=== PATIENT | male | born 1955 | race Caucasian/White ===

== ENCOUNTER 2022-01-16 00:16 | Day surgery (SDC) | payer MEDICARE, SELFPAY ==
[2022-01-04 12:00] VITALS: BMI 33.3
[2022-01-16 08:20] VITALS: BP 132/68; PULSE 75; RESP 19; TEMP 36.4; O2SAT 100
[2022-01-16] MEDS: LACTATED RINGERS 1,000 ML 150 ML IV CONT (08:37)
--- NOTE | 2022-01-16 09:20 | PM.HPGS ---
History of Present Illness History of Present Illness Consent: Risks, benefits, and alternatives have been discussed and questions answered. Patient agrees to proceed with procedure. Chief complaint: neoplasm screening Narrative: Sahil Grimes is a 66 year old male with his last colonoscopy 10 years ago Review of Systems Constitutional: Constitutional: Denies headache(s) and Denies weakness Eyes: Eyes: Denies blurry vision ENT: Reports Normal hearing present, Denies headache(s) and Denies neck pain Cardiovascular: Cardiovascular: Denies chest pain and Denies dyspnea Respiratory: Respiratory: Denies dyspnea Gastrointestinal: Gastrointestinal: Reports no additional gastrointestinal complaints Genitourinary: Genitourinary: Denies dysuria Musculoskeletal: Musculoskeletal: Denies neck pain Integumentary/Breasts: Skin/Breast: Denies dry skin Neurologic: Reports Normal hearing present, Denies headache(s) and Denies weakness Psychiatric: Psychiatric: Denies anxiety Endocrine: Endocrine: Denies change in body appearance Hematologic/Lymphatic: Hematologic/Lymphatic: Denies easy bleeding Allergic/Immunologic: Allergic/Immunologic: Denies urticaria PMFSH Past Medical History Medical History (Updated 01/16/22 @ 09:23 by Cj Lea MD) Colon cancer screening Social History Social History Smoking packs per day: 1 Smoking cigarettes per day: 20.0 Smoking status: Current every day smoker Tobacco type: cigarettes Substance use type: does not use Living arrangements: with family Meds Home Medications and Allergies Home Medications Medication Instructions Recorded Confirmed Type diclofenac sodium 75 mg PO DAILY 01/04/22 01/04/22 History lisinopril-hydrochlorothiazide 1 tablet PO DAILY 01/04/22 01/04/22 History simvastatin 40 mg PO DAILY 01/04/22 01/04/22 History Allergies Allergy/AdvReac Type Severity Reaction Status Date / Time codeine Allergy Swelling Verified 01/16/22 08:15 of Lip/Tongue/Throat Vital Signs Vital Signs - 24 hr 01/16/22 08:20 Temperature 97.6 F Pulse Rate 75 Respiratory Rate 19 Blood Pressure 132/68 Pulse Oximetry 100 Exam Const: General: comfortable and no acute distress HENMT: General nose exam: Normal nares present Eyes: General: appearance normal, both eyes and all related structures Neck: Neck: no JVD Resp: Auscultation: clear to auscultation bilaterally Cardio: Rate: regular rate Rhythm: regular rhythm GI: Inspection: non-distended GI Palp: Yes Soft to palpation Skin: General skin exam: normal color Neuro: General: gait normal Speech: normal speech Extrem: General: normal to inspection Psych: Mental Status: mental status grossly normal Assessment and Plan Assessment and plan (1) Colon cancer screening: Code(s): Z12.11 - Encounter for screening for malignant neoplasm of colon Status: Acute Assessment and Plan: colonoscopy
--- NOTE | 2022-01-16 09:21 | WPDANESEPPF ---
Anes - Initial Pre Proc Eval Procedure: Operation Date: 01/16/22 09:30 Proposed Procedures p Screening Colonoscopy - Cj Lea MD Date/Time: 01/16/22 09:21 Surgeon: Cj Lea MD Pre Op Diagnosis: neoplasm screening Patient Data Age: 66 Gender: M Height: 1.83 m Weight: 99 kg Last Vital Signs Temp 97.6 F 01/16/22 08:20 Pulse 75 01/16/22 08:20 Resp 19 01/16/22 08:20 BP 132/68 01/16/22 08:20 Pulse Ox 100 01/16/22 08:20 Allergies Allergy/AdvReac Type Severity Reaction Status Date / Time codeine Allergy Swelling Verified 01/16/22 08:15 of Lip/Tongue/Throat Home Medications Medication Instructions Recorded Confirmed Type diclofenac sodium 75 mg PO DAILY 01/04/22 01/04/22 History lisinopril-hydrochlorothiazide 1 tablet PO DAILY 01/04/22 01/04/22 History simvastatin 40 mg PO DAILY 01/04/22 01/04/22 History Patient hx anesthesia problems: none Family hx anesthesia problems: none Results Review: All pre-operative results and documents have been reviewed as part of the pre-operative evaluation. [facility] Social History Social History Smoking packs per day: 1 Smoking cigarettes per day: 20.0 Smoking status: Current every day smoker Tobacco type: cigarettes Substance use type: does not use Living arrangements: with family Anes - Eval Final PreProcedure Day of Procedure 01/16/22 09:21 Patient weight: obese Heart: regular rate and rhythm Lungs: clear to auscultation Airway: Mallampati scale Neurological: alert and oriented Last oral intake: >/= 8 hours ASA classification: III Emergent: no Anesthetic plan: proceed Anesthesia type and monitoring: general GIVS and standard monitoring Results Review: All pre-operative results and documents have been reviewed as part of the pre-operative evaluation. Informed Consent: The patient's anesthetic plan and its attendant risks and benefits were discussed with the patient/family/POA. Questions were solicited and answers provided to the satisfaction of the patient/family/POA.
[2022-01-16 09:38] VITALS: BP 138/81; PULSE 71; RESP 24; O2SAT 97
[2022-01-16 09:48] VITALS: BP 119/67; PULSE 73; RESP 21; O2SAT 99
[2022-01-16 09:58] VITALS: BP 115/76; PULSE 70; RESP 18; O2SAT 100
== END 2022-01-16 10:05 | disposition home or self-care (01) ==
PROVIDERS: PCP Student in an Organized Health Care Education/Training Program; Visit Provider Internal Medicine Gastroenterology
PROC: 0DJD8ZZ Inspection of Lower Intestinal Tract, Via Natural or Artificial Opening Endoscopic (ICD-10-PCS; CPT 45378; principal; 2022-01-16 09:30)
DX: Z12.11 Encounter for screening for malignant neoplasm of colon (principal); K57.30 Diverticulosis of large intestine without perforation or abscess without bleeding; K64.8 Other hemorrhoids; F17.210 Nicotine dependence, cigarettes, uncomplicated; E66.9 Obesity, unspecified; Z68.29 Body mass index [BMI] 29.0-29.9, adult
CPT/HCPCS: G0121; J2704; J7120

== ENCOUNTER 2024-07-13 08:30 | Outpatient (CLI) | payer MEDICARE, MEDICAID, SELFPAY ==
--- NOTE | ~2024-07-13 | XR_ITS ---
EXAMINATION: XR hand LT min 3V DATE: 07/13/2024 08:44 INDICATION: Bump of the left proximal thumb. TECHNIQUE: 3 views of left hand were obtained. COMPARISON: None. FINDINGS: Alignment is normal. No fracture. There is mild osteoarthritis of triscaphe joint, severe o steoarthritis of first carpometacarpal joint, moderate osteoarthritis of first-third metacarpophalang eal joints, first interphalangeal joint, second, fourth, and fifth proximal interphalangeal joints, a nd second-fifth distal interphalangeal joints. There is mild osteoarthritis of the other metacarpopha langeal joints and interphalangeal joints. IMPRESSION: 1. Polyarticular osteoarthritis. Reviewed, dictated and finalized at location [] NESS CONTINUITY PLANNING DIRECTOR
--- NOTE | ~2024-07-13 | XR_ITS ---
EXAMINATION: XR hand RT min 3V DATE: 07/13/2024 08:44 INDICATION: Right thumb bone spur status post removal. TECHNIQUE: 3 views of right hand were obtained. COMPARISON: None. FINDINGS: Alignment is normal. No fracture. There are likely changes of resection of trapezium. There is mild osteoarthritis of scaphoid-trapezoid joint and some of the metacarpophalangeal joints and in terphalangeal joints. There is moderate osteoarthritis of second and third metacarpophalangeal joints , first interphalangeal joint, second and third proximal interphalangeal joints, and second and third distal interphalangeal joints. There is a 5 mm loose body in the radiocarpal compartment dorsally. IMPRESSION: 1. Polyarticular osteoarthritis. Reviewed, dictated and finalized at location [] CIATE PROFESSOR OF VIOLIN
== END 2024-07-13 08:31 | disposition home or self-care (01) ==
LOC: ANHIMG 08:31
PROVIDERS: PCP Student in an Organized Health Care Education/Training Program; Visit Provider Plastic Surgery
DX: M18.12 Unilateral primary osteoarthritis of first carpometacarpal joint, left hand (principal); M19.041 Primary osteoarthritis, right hand
CPT/HCPCS: 73130

== ENCOUNTER 2024-08-03 12:30 | Outpatient (CLI) | payer MEDICARE, MEDICAID, SELFPAY ==
--- NOTE | ~2024-08-03 | CT_ITS ---
EXAMINATION: CT lung screening DATE: 08/03/2024 12:46 INDICATION: nicotine dependence TECHNIQUE: Computed tomography (CT) of the chest was performed without intravenous contrast. Addition al 3D reconstructions utilizing coronal maximum intensity projection (MIP) were performed. Automated exposure control and iterative reconstruction technique were employed. The dose-length product was 29 6.83 mGy-cm. COMPARISON: None FINDINGS: Calcified right apical nodule consistent with old granulomatous disease. 7 mm noncalcified nodule at the lingula on series 4, image 58. No other suspicious pulmonary nodules, pneumonia, pulmonary edema or pleural effusion. Minimal calcified plaques along the apices of both the left and right leaf of th e diaphragm which suggests sequela of prior asbestos exposure. Heart size normal. Atherosclerotic cor onary artery calcium. Aortic valve calcific location. No pericardial effusion. Thoracic aorta is norm al in caliber. 3.7 x 3.4 cm mass containing a few coarse calcifications located in the superior media stinum and which exerts mass effect upon the left side of the esophagus and left posterior margin of the trachea. The mass abuts and may arise from the posterior lower pole of the left thyroid. No other pathologically enlarged thoracic lymphadenopathy. 2.1 cm less than simple fluid attenuation right ad renal adenoma. IMPRESSION: 1. Lung-RADS category 3S: Probably benign with additional potentially significant lung cancer finding s. Further evaluation is recommended with noncontrast low-dose chest CT in 6 months. 2. Nonspecific 3.7 x 3.4 cm superior mediastinal mass with coarse calcifications which abuts the infe rior margin of the left thyroid lobe potentially an intrathoracic goiter. Given the location the mass is likely unable to be visualized with standard thyroid ultrasound and would not be amenable to ultr asound-guided biopsy. Correlate with any prior outside imaging if available. Reviewed, dictated and finalized at location A. RY WORKER IMPRESSION: 1. Lung-RADS category 3S: Probably benign with additional potentially significa nt lung cancer findings. Further evaluation is recommended with noncontrast low -dose chest CT in 6 months. 2. Nonspecific 3.7 x 3.4 cm superior mediastinal mass with coarse calcification s which abuts the inferior margin of the left thyroid lobe potentially an intra thoracic goiter. Given the location the mass is likely unable to be visualized with standard thyroid ultrasound and would not be amenable to ultrasound-guided biopsy. Correlate with any prior outside imaging if available.
== END 2024-08-03 12:31 | disposition home or self-care (01) ==
PROVIDERS: PCP Student in an Organized Health Care Education/Training Program; Visit Provider Student in an Organized Health Care Education/Training Program
DX: Z12.2 Encounter for screening for malignant neoplasm of respiratory organs (principal); F17.210 Nicotine dependence, cigarettes, uncomplicated; R91.8 Other nonspecific abnormal finding of lung field
CPT/HCPCS: 71271

== ENCOUNTER 2024-10-29 05:51 | Day surgery (SDC) | payer MEDICARE, MEDICAID, SELFPAY ==
[2024-10-07 13:28] VITALS: BMI 32.5
--- NOTE | 2024-10-28 14:59 | WPDANESEPPF ---
Anes - Initial Pre Proc Eval Procedure: Operation Date: 10/29/24 07:30 Proposed Procedures p Left Thumb Basal Joint Arthroplasty with Mini Tightrope - Daylin Nickerson MD Date/Time: 10/28/24 14:59 Surgeon: Daylin Nickerson MD Pre Op Diagnosis: Osteoarthritis First Metacarpal Joint Left Hand Patient Data Age: 68 Gender: M Height: 1.83 m Weight: 109 kg Allergies Allergy/AdvReac Type Severity Reaction Status Date / Time codeine Allergy Swelling Verified 10/07/24 13:27 of Lip/Tongue/Throat Home Medications ?Medication ?Instructions ?Recorded ?Confirmed ?Type lisinopril 20 1 tablet PO DAILY 01/04/22 10/07/24 History mg-hydrochlorothiazide 12.5 mg tablet simvastatin 40 mg tablet 40 mg PO DAILY 01/04/22 10/07/24 History aspirin 81 mg tablet,delayed 81 mg PO DAILY 10/07/24 10/07/24 History release (Adult Low Dose Aspirin) meloxicam 15 mg tablet 15 mg PO DAILY 10/07/24 10/07/24 History tamsulosin 0.4 mg capsule 0.4 mg PO HS 10/07/24 10/07/24 History Patient hx anesthesia problems: none Family hx anesthesia problems: none Results Review: All pre-operative results and documents have been reviewed as part of the pre-operative evaluation. [facility] Past Medical History Medical History (Updated 10/28/24 @ 15:00 by Yao Mckeon DO) Hyperlipidemia Hypertension Arthritis Colon cancer screening Surgical History Surgical History History of right knee joint replacement 2016 Family History Family History Mother Hypertension Father Hypertension Sibling Hypertension Social History Social History Smoking packs per day: 1 Smoking cigarettes per day: 20.0 Smoking status: Former smoker Tobacco type: cigarettes Second hand tobacco smoke exposure: Yes Alcohol intake: former Substance use type: does not use Living arrangements: with family Spiritual care concerns: No Anes - Eval Final PreProcedure Day of Procedure 10/28/24 14:59 Patient weight: obese Heart: regular rate and rhythm Lungs: clear to auscultation Airway: Mallampati scale class II Neurological: alert and oriented Last oral intake: >/= 8 hours ASA classification: III Emergent: no Anesthetic plan: proceed Anesthesia type and monitoring: general LMA and standard monitoring Results Review: All pre-operative results and documents have been reviewed as part of the pre-operative evaluation. Informed Consent: The patient's anesthetic plan and its attendant risks and benefits were discussed with the patient/family/POA. Questions were solicited and answers provided to the satisfaction of the patient/family/POA.
[2024-10-29] VITALS (11 sets, daily range): BP systolic 114–175; BP diastolic 66–94; PULSE 56–88; RESP 12–23; TEMP 36.1–37.1; O2SAT 100
[2024-10-29] MEDS: LACTATED RINGERS 1,000 ML 30 ML IV CONT (06:20)
--- NOTE | 2024-10-29 06:44 | WPDHPUPDATE1 ---
History and Physical Update Update Date/Time: 10/29/24 06:44 Patient seen and examined in pre-operative holding area. No interval change in medical history or symptoms. Patient recalls previous discussion of benefits and alternatives to procedure. Continues to desire to proceed with left basal joint artrhoplasty with mini-tightrope. Reviewed procedure, post-op expectations and risks including but not limited to bleeding, infection, injury to tendon/nerve/vessel, decreased hand function, failure of repair, hardware complications, stiffness, RSD, no change or worsening of symptoms. I discussed the possible use of assistants and their participation in the case. Patient stated understanding and signed the consent form wishing to proceed.
--- NOTE | 2024-10-29 06:44 | W.PM.PROC2 ---
Procedure Note - Detailed Date of Procedure 10/29/24 Pre-op Diagnosis Osteoarthritis First Metacarpal Joint Left Hand Post-op Diagnosis Same Procedure Performed left basal joint arthroplasty Surgeon Daylin Nickerson MD Biodiesel Division Manager keith haq pa-c Anesthesia General Description of Procedure INFORMED CONSENT: The patient was seen and examined and marked in the pre-op area.? The patient signed the consent form. PROCEDURE IN DETAIL:The patient taken back to OR on the stretcher in supine position. Time out performed with anesthesia, surgeon and staff agreeing on patient's name site and surgery to be performed SCDs were placed on the lower extremities and inflated. A tourniquet was placed on {left} upper extremity and antibiotics given IV After anesthesia administered sedation I injected {10}cc 1%lido with epi and 0.5% marcaine plain at the operative site The?{left upper extremity}?was prepped and draped in sterile fashion the??{left upper extremity} was? exsanguinated with Esmarch bandage and tourniquet inflated to 250mmHg I proceeded with making a longitudinal incision between the 1st and 3rd extensor compartments over the left trapezium through skin and dermis with a 15 blade scalpel. Littler scissors were used to spread down to the joint capsule. A branch of the dorsal radial sensory nerve was identified and protected throughout the procedure. I made longitudinal capsulotomy and proceeded with elevating capsular flaps. Mini C-arm was draped and brought into the field position of the trapezium was verified. There was a significant of calcification of the capsule with the trapezium and osteophytes extending radially and ulnarly around the metacarpal. The trapezium also fully encased the FCR as well as extended volarly abutting the FPL tendon. Resection of this extremely arthritic trapezium required a combination of sharp dissection, the Mcglamry elevator, osteotome and side-cutting bur. After trapezial resection mini C-arm was used to verify resection. Areas of calcification of the capsule were still noted but unable to be safely excised and did not seem to be resulting in any impingement upon the thumb motion. I irrigated with normal saline. I proceeded with making a longitudinal incision over the 2nd metacarpal base through skin and dermis with a 15 blade scalpel. Littler scissors were used to spread down to the 2nd metacarpal. I made a longitudinal incision in the periosteum and used a [place] elevator to reflect the interosseous musculature on the ulnar aspect of 2nd metacarpal base. Next I proceeded with placing an Arthrex variable gauge K-wire in a radial to ulnar direction from the 1st metacarpal through the 2nd metacarpal base. K-wire placement was verified in multiple views of fluoroscopy. The Arthrex mini tightrope was then passed in a radial ulnar direction. The button was noted to be resting on the 1st metacarpal on fluoroscopy. Second button was tightened over the 2nd metacarpal base initially and fluoroscopic evaluation noted no impingement on range of motion and no subsidence on axial load. The button was secured to the 2nd metacarpal. I irrigated with normal saline. Capsule and periosteum was closed over the button in the trapezial resection site with 3-0 Vicryl suture. 3-0 chromic was used for dermis and 4-0 chromic for skin. A dressing of xeroform, 4x4, aryan, and a thumb spica splint was applied for patient safety, security, and comfort and secured with an madhuri bandage after the tourniquet was let down noting the hand was warm and well perfused. The patient was then awaken from anesthesia and transferred to the recovery room in stable condition.? Complications - none EBL- 2cc Disposition - home in stable conditions Keith Haq PA-C was essential for positioning, retraction, fluoro, instrumentation, closure and dressing placement [facility] Billing Surgery - Charge Forward: Surgery Billing ([id number], for keith)
[2024-10-29] MEDS: ceFAZolin SODIUM 2 GM/20 ML SW SYRINGE IV PUSH (07:25)
[2024-10-29] MEDS: LIDO 1%/EPINEPHRINE 1:100,000 10 ML VIAL 4 ML INFILTRATE (07:30)
[2024-10-29] MEDS: BUPivacaine HCL 0.5% 10 ML AMP 4 ML INFILTRATE (07:30)
[2024-10-29] MEDS: fentaNYL CITRATE INJ (*CRX) 100 MCG/2 ML VIAL 25 MCG IV PUSH ×4 (09:33→10:02)
--- NOTE | 2024-10-29 10:43 | WPDANESPN ---
Anes - Prog Note Post-Op Date/Time: 10/29/24 10:43 Cardiovascular status: normal Respiratory status: normal Airway patency: baseline Mental status: baseline Post-Op hydration status: normal Vital Signs: Last Vital Signs Temp 36.2 C L 10/29/24 09:45 Pulse 70 10/29/24 10:38 Resp 12 10/29/24 10:38 BP 114/94 H 10/29/24 10:38 Pulse Ox 100 10/29/24 10:38 O2 Del Method Room Air 10/29/24 10:38 O2 Flow Rate 8 10/29/24 09:25 Pain Score (VAS): 0 I/O: Intake & Output 10/28/24 10/29/24 10/29/24 23:59 07:59 15:59 Intake Total 700 Balance 700 Post-procedural complaints: none Patient Feedback: Patient satisfied with anesthetic care. Other Findings: Patient vital signs back to baseline. Patient denies nausea and vomiting. Patient's pain under control. Patient OK for discharge.
[2024-10-29] MEDS: oxyCODONE HCL (*CRX) 5 MG TAB IR PO (10:46)
--- NOTE | 2024-10-29 11:05 | SUR.PHASEII ---
1046 Pt has allergy to codeine (swelling of lips and tongue), Pt states pain is a 6/10 and would like oxycodone. Reviewed allergies and reaction with Dr. Mckeon who states okay to proceed with giving pt 5mg oxycodone. Pt agrees.
== END 2024-10-29 11:01 | disposition home or self-care (01) ==
PROVIDERS: PCP Student in an Organized Health Care Education/Training Program; Visit Provider Plastic Surgery
PROC: (CPT 25447; principal; 2024-10-29 07:30)
DX: M18.12 Unilateral primary osteoarthritis of first carpometacarpal joint, left hand (principal)
CPT/HCPCS: 25447; 99199

== ENCOUNTER 2024-10-29 09:48 | Outpatient (NON) | payer MEDICARE, MEDICAID, SELFPAY | END 2024-10-29 09:49 | disposition home or self-care (01) | PROVIDERS: PCP Student in an Organized Health Care Education/Training Program; Visit Provider Plastic Surgery | DX: M19.032 Primary osteoarthritis, left wrist (principal) | CPT/HCPCS: 88304; 88311 ==

== ENCOUNTER 2025-01-19 10:24 | Outpatient (CLI) | payer MEDICARE, MEDICAID, SELFPAY ==
--- NOTE | ~2025-01-19 | XR_ITS ---
XR hand LT min 3V Ordering provider: Sonam Hall PA-C History: . 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 . Comparison: July 13, 2024 FINDINGS: BONES: No acute fracture or dislocation. Status post left trapezium bone removal with postoperative c hanges. JOINT SPACES: Osteoarthritic changes seen in the joint between the first and second metacarpal bones. Osteoarthritic changes of the metacarpophalangeal and interphalangeal joints. Cystic changes seen in multiple subchondral areas SOFT TISSUES: Unremarkable. IMPRESSION: No acute osseous abnormality left hand. Status post trapezial bone excision. Polyarticular osteoarthritic changes. Reviewed, dictated and finalized at location A.
--- OUTSIDE RECORDS SUMMARY | 2025-01-19 10:40 | XMS_ITS | CONTINUITY OF CARE DOCUMENT ---
Author Name [email or web address] Address Unknown Organization [facility] Address [id number] [place] [address] [address] [place] [address] Phone [phone] Care Team Providers Care Head Of Operation And Logistics Name Role Phone Irene Mathew MD Unavailable [phone] JOSE DAVID BARDALES MD Unavailable HISTORY OF MEDICATION USE Medication Status Instructions Dates Provider Indications Com ments ZOCOR 40 MG ORAL TABLET active 1 tab by mouth daily Philip Kraft INSURANCE PROVIDERS Payer name Policy type / Coverage type Juanis red green party ID [place] MEDICAID (2) Medicaid [id number]
--- OUTSIDE RECORDS SUMMARY | 2025-01-19 10:40 | XMS_ITS | Referral Summary ---
Author Organization [facility] Address [address] [place] [id number] Care Team Providers Care Software Quality Test Engineer Name Role Phone Rentangcatiekatina Dilip Paul Primary Care Provide r Philip Montague MD Unavailable [phone] Allergies Active Allergy Reactions Criticality Noted Date Comments Codeine Anaphylaxis,Swelling High 02/27/2020 Swelling of throat Other reaction(s): Throat swelling Swelling of throat Swelling of throat Swelling of throat Other reaction(s): Throat swelling Swelling of throat Medications lisinopril-hydr oCHLOROthiazide (ZESTORETIC) 20-12.5 mg per tablet Take 1 tablet by mouth daily 05/29/2022 Active simvastatin (ZOCOR) 40 mg tablet Take 1 tablet (40 mg total) by mouth nightly 05/16/2022 Active ascorbic acid (VITAMIN C) 500 mg tablet,chewable Indications:Vit cerda deficiency prevention Take 1 tablet/chew tab (500 mg total) by mouth daily 30 tablet/chew tab 11/20/2022 Active celecoxib (CeleBREX) 200 mg capsuleIndicati ons:Pain Take 1 capsule (200 mg total) by mouth 2 (two) times a day 84 capsule 11/20/2022 Active tamsulosin (FLOMAX) 0.4 mg extended release capsule Take 1 capsule (0.4 mg total) by mouth nightly Active meloxicam (MOBIC) 15 mg tablet 06/22/2024 Active cholecalciferol 25 mcg (1,000 unit) tablet Take 1 tablet (1,000 Units total) by mouth daily Active aspirin 81 mg enteric coated tablet Take 1 tablet (81 mg total) by mouth daily Active Active Problems Problem Noted Date Diagnosed Date Thyroid goiter 09/23/2024 Mediastinal mass 09/23/2024 Primary osteoarthritis of left knee 10/29/2022 Overview (10/29/2022): Added automatically from request for surgery [id number] CAD in [place] artery 01/24/2022 Overview (06/06/2022): Remote heart attack around 1999 Dyslipidemia 01/24/2022 Primary hypertension 01/24/2022 Tobacco use disorder 01/24/2022 Primary osteoarthritis of left hip 12/22/2021 Osteoarthritis of carpometacarpal (CMC) joint of left thumb 07/27/2020 Osteoarthritis of carpometac arpal (CMC) joint of right thumb 07/27/2020 Localized, primary osteoarthritis of ankle or fo ot 01/06/2015 Immunizations Immunization Administration Dates Next Due Influenza, Quadrivalent, Split, Intramuscular ,06/24/2019 Tdap 11/08/2020 ZOSTER Recombinant 11/08/2020 Social History Tobacco Use Types Packs/Day Years Used Date Smoking Tobacco: Former Cigarettes 0.5 0.7 1 971 - 06/02/2022 Smokeless Tobacco: Never Tobacco Cessation:Counseling Given: Not Answered AUDIT-C Answer Date Recorded Frequency of Alcohol Consumption Not on file 10/08/2024 Q2: How many drinks containi ng alcohol do you have on a typical day when you are drinking? Patient does not drink Frequency of Binge Drinking Not on file 01/2025 Hunger Vital Sign Answer Date Recorded Within the past 12 months, y ou worried that your food would run out before you got the money to buy more. Never true 10/08/19 25 Within the past 12 months, t he food you bought just didn't last and you didn't have money to get more. Never true 10/08/2024 Personal Safety Answer Date Recorded Have you ever been in or are you currently in a harmful physical or emotional relationship or is someone making you feel afraid or unsafe? Denies 10/08/2024 Sex and Gender Information Value Date Recorded Sex Assigned at Not on file Legal Sex Male 7:16 PM TWISTING FRAME OPERATOR Gender Identity Not on file Sexual Orientation Not on file Last Filed Vital Signs Vital Sign Reading Time Taken Comments Blood Pressure 117/71 10/08/2024 9:50 AM TWISTING FRAME OPERATOR Pulse 63 10/08/2024 9:50 AM TWISTING FRAME OPERATOR Temperature 36.7 C (98.1 F) 10/08/2024 9:04 AM TWISTING FRAME OPERATOR Respiratory Rate 17 10/08/2024 9:50 AM TWISTING FRAME OPERATOR Oxygen Saturation 98% 10/08/2024 9:50 AM TWISTING FRAME OPERATOR Inhaled Oxygen Concentration - - Weight 108.9 kg (240 lb) 10/08/2024 7:48 AM TWISTING FRAME OPERATOR Height 182.9 cm (6') 10/08/2024 7:48 AM TWISTING FRAME OPERATOR Body Mass Index 32.55 10/08/2024 7:48 AM TWISTING FRAME OPERATOR Plan of Treatment Not on file Medical Devices Implanted Type Area Record Systems Analyst Device Identifier Shelf Expiration Date Model / Serial / Lot [employer] [place] 60mm 36mm Hip Neutral Liner Acetabular Altrx Sterile Latex Free [id number] - [id number] Implanted:Qty: 1 on 11/19/2022 by Philip Montague MD at [facility] Left: Hip [employer] 08/01/2027 [id number] / / [id number] [employer] [place] 60mm Sector Hip Shell Acetabular Gription Sterile Latex Free [id number] - [id number] Implanted:Qty: 1 on 11/19/2022 by Philip Montague MD at [facility] Left: Hip [employer] 08/01/2032 [id number] / / [id number] [employer] [place] 6.5mm 35mm Acetabular Cancellous Screw Bone Sterile 1217-35-500 - [id number] Implanted:Qty: 1 on 11/19/2022 by Philip Montague MD at [facility] Left: Hip [employer] 05/02/2032 1217-35-500 / / [id number] [employer] [place] 6.5mm 25mm Acetabular Cancellous Screw Bone Sterile 1217--500 - [id number] Implanted:Qty: 1 on 11/19/2022 by Philip Montague MD at [facility] Left: Hip [employer] 06/01/2032 1217-25-500 / / [id number] [employer] Act[place] 115mm Collar Hip 10 08/15 High Offset Taper Stem Femoral [id number] - [id number] Implanted:Qty: 1 on 11/19/2022 by Philip Montague MD at [facility] Left: Hip [employer] 06/01/2032 [id number] / / [id number] [employer] Articul/Jhonathan 36mm Cementless Hip +5mm / Taper Head Femoral Latex Free [id number] - [id number] Implanted:Qty: 1 on 11/19/2022 by Philip Montague MD at [facility] Left: Hip [employer] 07/02/2027 [id number] / / [id number] Insurance [facility] MEDIC[place] [address] [place] [address] [facility] MEDICARE ADVANTAGE MEDICARE ADVANTAGE MEDICARE ADVANTAGE Advance Directives For more information, please contact: [phone] * Full Code (Latest Code Status on File) Date Activated Date Inactivated Comments 11/19/2022 1:40 PM 11/20/2022 6:09 PM Care Teams Software Quality Test Engineer Relationship Specialty Start Date End Date Dilip Mckeon DO [address] [place], [place] [id number] PCP - General Family Medicine 04/26/22 Philip Montague MD [address] [facility] [address] [place] [id number] Surgeon Orthopedic Surgery 11/20/22
--- OUTSIDE RECORDS SUMMARY | 2025-01-19 10:40 | XMS_ITS | Clinical Summary ---
Author Organization [facility] Address [address] [place] [address] Care Team Providers Care Rotary Peel Oven Tender Name Role Phone Michel Cabrales MD Unavailable [phone] Dilip Mckeon DO Primary Care Provider + Allergies Active Allergy Reactions Criticality Noted Date Comments Codeine Throat swelling,Anaphylaxis High 02/27/2020 Swelling of throat Swelling of throat Other reaction(s): Throat swelling Swelling of throat Medications aspirin 81 MG chewable tablet Chew 1 tablet (81 mg total) by mouth daily. Active tamsulosin (FLOMAX) 0.4 MG Cap Take 1 capsule (0.4 mg total) by mouth nightly at bedtime. 4 Active vitamin D3 (CHOLECALCIFEROL) 25 mcg tablet Take 1 tablet (25 mcg total) by mouth daily. Active meloxicam (MOBIC) 15 MG tabletIndications: Chronic left shoulder pain Take 1 tablet (15 mg total) by mouth daily. 90 tablet 3 4 Active simvastatin (ZOCOR) 40 MG tabletIndications: Hyperlipidemia, unspecified hyperlipidemia type Take 1 tablet (40 mg total) by mouth nightly at bedtime. 90 tablet 3 4 Active lisinopril-hydroCH LOROthiazide (ZESTORETIC) 20-25 MG tabletIndications: Primary hypertension Take 1 tablet by mouth daily. 90 tablet 1 5 Active lisinopril-hydroCH LOROthiazide (ZESTORETIC) 20-12.5 MG tabletIndications: Primary hypertension Take 1 tablet by mouth daily. 90 tablet 3 4 12/29/19 25 Discontin ued(Dose adjustmen t) dexamethasone (DECADRON) 1 MG tabletIndications: Adrenal adenoma, unspecified laterality Take 1 tab at 11 PM the night before your test. Obtain your blood test at 8 AM the next morning. 1 tablet 4 12/29/19 25 Discontin ued(Thera py completed ) Active Problems Problem Noted Date Diagnosed Date Low serum thyroid stimulating hormone (TSH) 08/02 Thyroid mass 08/11/2024 Adrenal adenoma, unspecified laterality 08/11/20 24 Elevated hemoglobin A1c 12/26/2023 Atherosclerosis of abdominal aorta 02/21/2023 Overview (02/21/2023): Noted on ultrasound aorta from 02/05/23. CAD in [place] artery 01/24/2022 Overview (01/24/2022): Remote heart attack around 1999 Primary hypertension 01/24/2022 Dyslipidemia 01/24/2022 Tobacco use disorder 01/24/2022 Primary osteoarthritis of left hip 12/22/2021 Aftercare following surgery 09/14/2020 Osteoarthritis of carpometac arpal (CMC) joint of right thumb, unspecified osteoarthritis type 07/27/2020 Osteoarthritis of carpometac arpal (CMC) joint of left thumb, unspecified osteoarthritis type 07/27/2020 Localized, primary osteoarthritis of ankle or fo ot 01/06/2015 Encounters Date Type Department Care Team Description 12/28/2024 9:40 AM CDT Office Visit [facility] Family & Internal Medicine [address] [phone] Dilip Mckeon, DO Hypertension Follow Up 12/28/2024 8:40 AM CDT Office Visit [facility] Family & Internal Medicine [address] [phone] Dilip Mckeon, DO Medicare Wellness 12/28/2024 Travel 12/24/2024 Patient Outreach [facility] Internal Medicine [address] [phone] Dilip Mckeon, DO Pre-visit Gap Closure 10/29/2024 Scan Solmentum INFO SRVCS Scanned, [facility] Image (SCAN); Procedure (SCAN); Pathology (SCAN) from Last 3 Months Immunizations Immunization Administration Dates Next Due Arexvy Respiratory Syncytial Virus (RSV, adjuvanted) 0.5 mL, PF 07/02/2023 Fluzone 6 Months+ (5.0 mL Multi Dose Vial) 06/24 Fluzone High Dose - >Age 65 (Prefilled Syringe) 06/26/2023,06/25/2022 Influenza (Generic) 05/29/2024 Influenza Adult (Generic) 06/26/2023,07/21/2020, 06/24/2019 MODERNA COVID-19 (12+) MRNA, LNP-S, PF, 100 MCG/ 0.5 ML DOSE 07/31/2021,12/16/2020,11/18/2020 PFIZER COVID-19 (TANG CAP), MRNA, LNP-S, PF, 30 MCG/0.3 ML SAUNDRA-SUCROSE, IM 01/12/2022 PFIZER COVID-19 BIVALENT (12 +) mRNA, LNP-S, PF, 30 MCG/0.3 ML DOSE 05/14/2022 Pneumococcal (Prevnar 20) 06/25/2022 Shingrix 10/26/2022,11/08/2020 Tdap (Generic) 11/08/2020 Family History Medical History Relation Comments Asthma Brother 1 Asthma Brother 2 Hypertension Father No Known Problems Maternal Grandfather No Known Problems Maternal Grandmother Hypertension Mother No Known Problems Paternal Grandfather No Known Problems Paternal Grandmother Relation Status Comments Brother 1 Alive Brother 2 Alive Father Maternal Grandfather Maternal Grandmother Mother Paternal Grandfather Paternal Grandmother Social History Tobacco Use Types Packs/Day Years Used Date Smoking Tobacco: Former Cigarettes 0.5 49 1 - 06/2022 Passive Smoke Exposure: Never Smokeless Tobacco: Never Tobacco Cessation:Counseling Given: Yes Alcohol Use Standard Drinks/Week Comments Not Currently 0 (1 standard drink = 0.6 oz pur e alcohol) AUDIT-C Answer Date Recorded Q1: How often do you have a drink containing alcohol? Never 12/28/2024 Q2: How many drinks containi ng alcohol do you have on a typical day when you are drinking? Patient does not drink Q3: How often do you have si x or more drinks on one occasion? Never 12/28/2024 PHQ-2 Answer Date Recorded Patient Health Questionnaire-2 Score 0 12/28/2024 Sex and Gender Information Value Date Recorded Sex Assigned at Male 08/11/2024 10:42 AM POCKET ASSEMBLER Legal Sex Male 6:47 PM CDT Gender Identity Male 08/11/2024 10:42 AM POCKET ASSEMBLER Sexual Orientation Straight 12/28/2024 9: 11 AM CDT Last Filed Vital Signs Vital Sign Reading Time Taken Comments Blood Pressure 138/88 12/28/2024 9:55 AM CDT Pulse 68 12/28/2024 9:55 AM CDT Temperature 36.9 C (98.4 F) 12/28/2024 9:55 AM CDT Respiratory Rate 18 12/28/2024 9:55 AM CDT Oxygen Saturation 98% 12/28/2024 9:55 AM CDT Inhaled Oxygen Concentration - - Weight 102.6 kg (226 lb 1.6 oz) 12/28/2024 9:55 AM CDT Height 182.9 cm (6') 12/28/2024 9:55 AM CDT Body Mass Index 30.66 12/28/2024 9:55 AM CDT Plan of Treatment Upcoming Encounters Date Type Department Care Team (Late st Contact Info) Description 06/29/2025 8:40 AM CDT Office Visit [facility] Family & Internal Medicine - [address] [phone] Dilip Mckeon, [address] [place] [phone] Health Maintenance Due Date Last Done Comments Lung Cancer Screening 08/08/2022 08/08/2021, 020 Colorectal Cancer Screening Colonoscopy (10 Years) 12/15/2025 12/16/2015 Annual Medicare Wellness Visit 12/29/2025 12/28/2024 DTaP, Tdap and Td Vaccines (2 - Td or Tdap) 11/08/2030 11/08/2020 AAA SCREENING 06/29/2042 Hepatitis C Completed 01/04/2022 Pneumococcal Vaccine: 50+ Years Completed 06/25/2022 Zoster Vaccines Completed 10/26/2022, 11/08/2020 RSV Immunization or 60+ Years Completed 07/02/2023 COVID-19 Vaccine Completed 12/21/2024, , 06/14/2023, Additional history exists PHQ-2 (Physician [place]) Completed 12/28/2024 Meningococcal B Vaccine Aged Out No l onger eligible based on patient's age to complete this topic Meningococcal Vaccine Aged Out No shey baldev eligible based on patient's age to complete this topic RSV Immunizations Under 20 Months Aged Out No longer eligible based on patient's age to complete this topic Medical Devices Implanted Type Area Site Safety Representative Device Identifier Shelf Expiration Date Model / Serial / Lot Bio Composite Screw With Disposable Anthropology Department Chair Pack Implanted:Qty: 1 on 08/04/2020 by Tony Muñiz MD at [facility] Right: Thumb [id number] / / [id number] Implant System, Hand/Wrist Interal Brace Ligament Augmentation Repair Implanted:Qty: 1 on 08/04/2020 by Tony Muñiz MD at [facility] Right: Thumb 05/02/2025 [id number] / / [id number] Procedures Procedure Name Priority Date/Time Associated Diagnosis Comments PATHOLOGY GENERIC (SCAN ORDER) 10/29/2024 IMAGE GENERIC 10/29/2024 PROCEDURE GENERIC (SCAN ORDER) 10/29/2024 HEPATITIS C ANTIBODY Routine 01/04/2022 9:14 AM CDT Need for hepatitis C screening test CT LUNG SCREENING Routine 08/08/2021 1:4 6 PM POCKET ASSEMBLER Personal history of nicotine dependence COLONOSCOPY GENERIC (SCAN ORDER) 12/16/2015 from Last 3 Months or Most Recently Relevant to Health Maintenance Results * PATHOLOGY GENERIC (SCAN ORDER) (10/29/2024) 10/29/2024 [facility] Scanned SCANNING Final Resu lt * IMAGE GENERIC (10/29/2024) Anatomical Region Laterality Modality Other 10/29/2024 [facility] Scanned SCANNING Final Resu lt * PROCEDURE GENERIC (SCAN ORDER) (10/29/2024) 10/29/2024 [facility] Scanned SCANNING Final Resu lt * HEPATITIS C ANTIBODY (01/04/2022 9:14 AM CDT) HEPATITIS C AB NON-REACTI VE NON-REACT CYNTHIA 01/05/2022 5:45 PM CDT [facility] Comment: ANTIBODIES TO HCV NOT DETECTED. DOES NOT EXCLUDE THE POSSIBILITY OF EXPOSURE TO HCV. 01/04/2022 9:14 AM CDT Result [facility] Dilip Mckeon DO LABORATORY Final Re sult [facility] [address] [place] [address], [id number] * CT LUNG SCREENING (08/08/2021 1:46 PM POCKET ASSEMBLER) Anatomical Region Laterality Modality Chest Computed Tomogra phy 08/08/2021 3:4 7 PM POCKET ASSEMBLER Narrative 08/08/2021 3:51 PM POCKET ASSEMBLER EXAM: LUNG SCREENING LOW-DOSE CT THORAX WITHOUT CONTRAST DATE: 08/08/2021 HISTORY: Asymptomatic patient with history of smoking meeting CMS high-risk criteria for lung screening. * 65 years * 30 pack years or greater * Current smoker or have quit smoking within the last 15 years COMPARISON: 07/27/2020 TECHNIQUE: Noncontrast, helical, low-dose CT (LDCT) chest per standard departmental protocol. A dose lowering technique was used for this procedure, which may include, but is not limited to, dose reduction technique, automated exposure control, the use of iterative reconstruction, and ALARA (As Low As Reasonably Achievable) / Image Gently techniques. FINDINGS: Lung Screening Specific (LUNG-RADS): Nodule 1 (image 89, series 3): 5 mm solid, smooth, parenchymal nodule in the lingula, stable. Potentially Significant Incidentals (LUNG-RADS category S): None. Pulmonary Incidentals: None. Other Incidentals: Atherosclerotic calcification of the coronary arteries. There is a prominent AP window lymph node which is slightly increased in size from the prior examination but does not meet size criteria for lymphadenopathy. 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 Stable bilateral adrenal adenomas. Spondylosis of the thoracic spine. IMPRESSION; 1. LUNG-RADS category 2: Negative. Lung nodule(s) with benign appearance or behavior. 2. LUNG-RADS category S: Negative, no new/unknown potentially significant incidental findings requiring urgent additional evaluation. 3. Prominent AP window lymph node, slightly increased in size from the prior examination but does not meet size criteria for lymphadenopathy. Other incidental findings as above. RECOMMENDATIONS: Continued routine annual LDCT lung screening. Suggest next exam on or around August 2022 Thank you for choosing the [facility] Lung Screening Program. Ordered By: JI GALDAMEZ Interpreted By: Yakov Solano MD, 08/08/2021 3:47 PM Procedure Note Yakov Solano MD - 08/08/2021 EXAM: LUNG SCREENING LOW-DOSE CT THORAX WITHOUT CONTRAST DATE: 08/08/2021 HISTORY: Asymptomatic patient with history of smoking meeting CMShigh-risk criteria for lung screening. * 65 years * 30 pack years or greater * Current smoker or have quit smoking within the last 15 years COMPARISON: 07/27/2020 TECHNIQUE: Noncontrast, helical, low-dose CT (LDCT) chest per standarddepartmental protocol. A dose lowering technique was used for thisprocedure, which may include, but is not limited to, dose reductiontechnique, automated exposure control, the use of iterativereconstruction, and ALARA (As Low As Reasonably Achievable) / Image Gentlytechniques. FINDINGS: Lung Screening Specific (LUNG-RADS): Nodule 1 (image 89, series 3): 5 mm solid, smooth, parenchymal nodule inthe lingula, stable. Potentially Significant Incidentals (LUNG-RADS category S): None. Pulmonary Incidentals: None. Other Incidentals: Atherosclerotic calcification of the coronary arteries.There is a prominent AP window lymph node which is slightly increased insize from the prior examination but does not meet size criteria forlymphadenopathy. Stable calcified upper mediastinal mass causing masseffect on the trachea, likely representing substernal extension of thethyroid. Stable bilateral adrenal adenomas. Spondylosis of the thoracicspine. IMPRESSION; 1. LUNG-RADS category 2: Negative. Lung nodule(s) with benign appearanceor behavior. 2. LUNG-RADS category S: Negative, no new/unknown potentially significantincidental findings requiring urgent additional evaluation. 3. Prominent AP window lymph node, slightly increased in size from theprior examination but does not meet size criteria for lymphadenopathy.Other incidental findings as above. RECOMMENDATIONS: Continued routine annual LDCT lung screening. Suggestnext exam on or around August 2022 Thank you for choosing the [facility]. Ordered By: JI GALDAMEZ Interpreted By: Yakov Solano MD, 08/08/2021 3:47 PM us Ji Galdamez PA CT Final Result * COLONOSCOPY GENERIC (12/16/2015) 12/16/2015 Narrative 12/16/2015 Ordered by an unspecified provider. us Documents Scanned SCANNING Final Result from Last 3 Months or Most Recently Relevant to Health Maintenance Insurance MEDICAID UHC Care Teams Rotary Peel Oven Tender Relationship Specialty Start Date End Date Dilip Mckeon DO [address] [place] [id number] PCP - General FAMILY PRACTICE 12/22/21 Michel Cabrales MD [place] INTERVENTIONAL CARDIOLOGY 07/27/20
--- OUTSIDE RECORDS SUMMARY | 2025-01-19 10:40 | XMS_ITS | Clinical Summary ---
Author Organization [facility] Address [address] [place] [address] Care Team Providers Care Credit Collections Manager Name Role Phone Susan Kiser MD Primary Care Provider [phone] Source Comments [facility],non-owned Affiliates and Associated Physician Practices is amultiple site organization consisting of ambulatory clinics and hospital sitesin [place], [place], [place] and [place]. This disclosure is being madepursuant to the Care Everywhere program and may not contain all information available regarding this patient. Last updated 18.[facility] Allergies Active Allergy Reactions Criticality Noted Date Comments Codeine 10/27/2015 Medications * Be aware that medications may not be up to date on this document. Alwaysverify current medications with the patient. lisinopril-hydro chlorothiazide (PRINZIDE; ZESTORETIC) 10-12.5 MG tablet Take by mouth once daily Active naproxen (NAPROSYN) 500 MG tablet Take 1 Tab by mouth as needed Active simvastatin (ZOCOR) 40 MG tablet Take 1 Tab by mouth Active aspirin EC (ECOTRIN) 325 MG tablet Take 325 mg by mouth Active Family History Medical History Relation Name Comments Hypertension Father Emphysema Mother Relation Name Status Comments Father Mother Social History Tobacco Use Types Packs/Day Years Used Date Smoking Tobacco: Every Day Cigarettes Smokeless Tobacco: Never Alcohol Use Standard Drinks/Week Comments No 0 (1 standard drink = 0.6 oz pur e alcohol) Sex and Gender Information Value Date Recorded Sex Assigned at Not on file 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 Gender Identity Not on file Sexual Orientation Not on file Last Filed Vital Signs Vital Sign Reading Time Taken Comments Blood Pressure 123/79 12/16/2015 11:30 AM CDT Pulse 78 12/16/2015 11:30 AM CDT Temperature 36.5 C (97.7 F) 03/10/2014 10:35 AM CDT Respiratory Rate 24 12/16/2015 11:30 AM CDT Oxygen Saturation 100% 12/16/2015 11:30 AM CDT Inhaled Oxygen Concentration - - Weight 113.4 kg (250 lb) 03/10/2014 10:35 AM CDT Height 182.9 cm (6') 03/10/2014 10:35 AM CDT Body Mass Index 33.91 03/10/2014 10:35 AM CDT Plan of Treatment Health Maintenance Due Date Last Done Comments COLOGUARD (AGES 45-75) - COL ON CA SCREENING 1955 CT COLONOGRAPHY - COLON CA SCREENING 1955 FIT - COLON CA SCREENING 1955 FLEX SIG - COLON CA SCREENING 1955 MEDICARE AWV 12 MONTHS 1955 HEPATITIS C SCREENING 12/19/1974 DTAP/TDAP/TD VACCINES (1 - Tdap) 12/24/1975 PNEUMOCOCCAL VACCINE 50+ (1 of 2 - PCV) 12/24/1975 ZOSTER VACCINE (1 of 2) 2006 AAA SCREENING 2021 COVID-19 VACCINE ( - 2023-2 5 season) 2024 DEPRESSION SCREENING 09/02/2024 INFLUENZA VACCINE (Season Ended) 2025 COLON MONITORING 12/15/2025 12/16/2015, 12/16/2015 COLONOSCOPY - COLON CA SCREENING 12/15/2025 12/16/2015, 12/16/2015 Colorectal Cancer Screening 12/15/2025 Respiratory Syncytial Virus (RSV) Vaccine Pt: or over 60 yrs (1 - 1-dose 75+ series) 12/24/2031 HEPATITIS B VACCINE Aged Out No longe r eligible based on patient's age to complete this topic HIB VACCINE Aged Out No longer eligi ble based on patient's age to complete this topic HPV VACCINE Aged Out No longer eligi ble based on patient's age to complete this topic MENINGOCOCCAL (Group B) VACCINE SHARED DECISION-MAKING Aged Out No longer eligible based on patient's age to complete this topic MENINGOCOCCAL GROUPS A/C/Y/W VACCINE Aged Out No longer eligible b ased on patient's age to complete this topic Procedures Procedure Name Priority Date/Time Associated Diagnosis Comments ENDOSCOPY, COLON, SCREENING Routine 12/16/2015 10:28 AM CDT from Last 3 Months or Most Recently Relevant to Health Maintenance Results * ENDOSCOPY, COLON, SCREENING (12/16/2015 10:28 AM CDT) Report Endoscopy POC _ Patient Name: Sahil Grimes Procedure Date: 12/16/2015 10:28 AM Date of : 1955 Admit Type: Outpatient Age: 59 Gender: Male Attending MD: Kip Swift, _ Procedure: Colonoscopy Indications: Screening for colorectal malignant neoplasm Providers: Kip Swift (Doctor), Mely Louie RN, Carlee Ramirez Patient Profile: 59M pmh HTN, HLD here for screening colonoscopy, avg risk Referring MD: Susan Kiser MD (Referring MD) Medicines: Monitored Anesthesia Care Complications: No immediate complications. _ Procedure: After I obtained informed consent, the scope was passed under direct vision. Throughout the procedure, the patient's blood pressure, pulse, and oxygen saturations were monitored continuously. The Colonoscope was introduced through the anus and advanced to the cecum, identified by appendiceal orifice and ileocecal valve. The colonoscopy was performed without difficulty. The patient tolerated the procedure well. The quality of the bowel preparation was good. Impression: - Diverticulosis in the sigmoid colon. - Examined colon is otherwise normal on direct and retroflexion views. Findings: The perianal and digital rectal examinations were normal. Multiple small-mouthed diverticula were found in the sigmoid colon. The exam was otherwise without abnormality on direct and retroflexion views. _ Recommendation: - Repeat colonoscopy in 10 years for screening purposes. - High fiber diet. Procedure Code(s): --- Professional --- G0121, Colorectal cancer screening; colonoscopy on individual not meeting criteria for high risk --- Technical --- G0121, Colorectal cancer screening; colonoscopy on individual not meeting criteria for high risk Diagnosis Code(s): --- Professional --- Z12.11, Encounter for screening for malignant neoplasm of colon K57.30, Diverticulosis of large intestine without perforation or abscess without bleeding --- Technical --- Z12.11, Encounter for screening for malignant neoplasm of colon K57.30, Diverticulosis of large intestine without perforation or abscess without bleeding CPT copyright 2015 [employer]. All rights reserved. The codes documented in this report are preliminary and upon hospital account manager review may be revised to meet current compliance requirements. Kip Swift, 12/16/2015 10:57:33 AM This report has been signed electronically. Number of Addenda: 0 Note Initiated On: 12/16/2015 10:28 AM [facility] ENDOSCOPY 12/16/2015 10:2 8 AM CDT us Kip Swift MD GI PROCEDURE ORDERABLES Edited R esult - Final [facility] ENDOSCOPY from Last 3 Months or Most Recently Relevant to Health Maintenance Insurance [facility] MANAGED MEDICARE ADV MEDICAID - [place] MEDICARE Care Teams Credit Collections Manager Relationship Specialty Start Date End Date Susan Kiser MD [address] [place] [address] PCP - General Gastroenterology 10/27/15
--- OUTSIDE RECORDS SUMMARY | 2025-01-19 10:40 | XMS_ITS | Clinical Summary ---
Author Organization [facility] Address [address] [place] [id number] Care Team Providers Care Raveler Name Role Phone Rentangcatiekatina Dilip Paul Primary Care Provide r Philip Montague MD Unavailable Allergies Active Allergy Reactions Criticality Noted Date [...] (10/29/2022): Added automatically from request for surgery [id number] CAD in [place] artery 01/24/2022 Overview (06/06/2022): Remote heart attack [...] Intramuscular ,06/24/2019 Tdap 11/08/2020 ZOSTER Recombinant 11/08/2020 Surgical History Surgery Date Site/Laterality Comments KNEE ARTHROSCOPY 08/20/2016 Right HAND SURGERY Right JOINT REPLACEMENT right knee and left hip replacements Medical History Medical History Date Comments Hypercholesteremia Hypertension Arthritis Thyroid disease Family History Medical History Relation Name Comments Hypertension Father Hypertension Mother Relation Name Status Comments Father Mother [...] money to buy more. Never true 10/08/19 Within the past 12 months, t he [...] on file Legal Sex Male 7:16 PM COMP[employer]ITIVE [employer] Gender Identity Not on file Sexual Orientation Not on file Obstetrics History Last Filed Vital Signs Vital Sign Reading Time Taken Comments Blood Pressure 117/71 10/08/2024 9:50 AM COMPETITIVE SHOPPER Pulse 63 10/08/2024 9:50 AM COMPETITIVE SHOPPER Temperature 36.7 C (98.1 F) 10/08/2024 9:04 AM COMPETITIVE SHOPPER Respiratory Rate 17 10/08/2024 9:50 AM COMPETITIVE SHOPPER Oxygen Saturation 98% 10/08/2024 9:50 AM COMPETITIVE SHOPPER Inhaled Oxygen Concentration - - Weight 108.9 kg (240 lb) 10/08/2024 7:48 AM COMPETITIVE SHOPPER Height 182.9 cm (6') 10/08/2024 7:48 AM COMPETITIVE SHOPPER Body Mass Index 32.55 10/08/2024 7:48 AM COMPETITIVE SHOPPER Plan of Treatment Health Maintenance Due Date Last Done Comments Colon Cancer Screening-Colonoscopy 1955 Depression Screening 1955 Hepatitis C Screening 1955 Prostate Cancer Screening-PSA 1956 Hepatitis B Screening 1974 Pneumococcal vaccine 65+ (1 of 1 - PCV) 2006 Abdominal Aortic Aneurysm (A AA) Screen 2021 Well Visit 65+ 2021 Covid-19 Vaccine (6 - 2023-2 5 season) 2024 05/14/2022, 01/12/2022, 07/31/2021, Additional history exists Fall Risk Assessment 10/08/2025 10/08/2024 DTaP/Tdap/Td Vaccine (2 - Td or Tdap) 11/08/2030 11/08/2020 Zoster Vaccine Completed 10/26/2022, 11/08/2020 Influenza Vaccine Completed 05/29/2024, , 07/21/2020, Additional history exists Medical Devices Implanted Type [facility] Liaison Device Identifier Shelf Expiration Date Model / Serial / Lot Dep [employer] [place] 60mm 36mm Hip Neutral Liner Acetabular Altrx Sterile Latex Free [id number] - [id number] Implanted:Qty: 1 on 11/19/2022 by Philip Montague MD at [facility] Left: Hip [employer] 08/01/2027 [id number] / / [id number] [employer] [place] 60mm Sector Hip Shell Acetabular Gription Sterile Latex Free [id number] - [id number] Implanted:Qty: 1 on 11/19/2022 by Philip Montague MD at [facility] Left: Hip [employer] 08/01/2032 [id number] / / [id number] [employer] [place] 6.5mm 35mm Acetabular Cancellous Screw Bone Sterile 1217--500 - [id number] Implanted:Qty: 1 on 11/19/2022 by Philip Montague MD at [facility] Left: Hip [employer] 05/02/2032 1217-35-500 / / [id number] [employer] [place] 6.5mm 25mm Acetabular Cancellous Screw Bone Sterile 1217-500 - [id number] Implanted:Qty: 1 on 11/19/2022 by Philip Montague MD at [facility] Left: Hip [employer] 06/01/2032 1217-25-500 / / [id number] [employer] [place] 115mm Collar Hip 10 /14 High Offset Taper Stem Femoral [id number] - [id number] Implanted:Qty: 1 on 11/19/2022 by Philip Montague MD at [facility] Left: Hip [employer] 06/01/2032 [id number] / / [id number] [employer] Articul/Jhonathan 36mm Cementless Hip +5mm 12/14 Taper Head Femoral Latex Free [id number] - [id number] Implanted:Qty: 1 on 11/19/2022 by Philip Montague MD at [facility] Left: Hip [employer] 07/02/2027 [id number] / / [id number] Insurance [facility] [place] [address] [facility] [employer] [employer] Advance Directives For more information, please contact: [phone] * Full Code (Latest Code Status on File) Date Activated Date Inactivated Comments 11/19/2022 1:40 PM 11/20/2022 6:09 PM Care Teams Raveler Relationship Specialty Start Date End Date Dilip Mckeon DO [address] [place] [id number] PCP - General Family Medicine 04/26/22 Philip Montague MD [address] [place] [address] DR MOYER [address] [place] [id number] Surgeon Orthopedic Surgery 11/20/22
== END 2025-01-19 10:25 | disposition home or self-care (01) ==
LOC: ANHIMG 10:27
PROVIDERS: PCP Student in an Organized Health Care Education/Training Program; Visit Provider Physician Assistant Surgical
DX: M18.12 Unilateral primary osteoarthritis of first carpometacarpal joint, left hand (principal)
CPT/HCPCS: 73130

== ENCOUNTER 2025-02-05 09:34 | Outpatient (CLI) | payer MEDICARE, MEDICAID, SELFPAY ==
--- NOTE | ~2025-02-05 | CT_ITS ---
CT Scan of the Chest without Contrast: Clinical Indication: Abnormal lung screening CT Technique: Contiguous sections were acquired throughout the chest without intravenous contrast. Dose reduction technique was used on this scan by utilizing automated exposure control and iterative recon struction technique. The dose-length product (DLP) was 583.02 mGy-cm. COMPARISON: 08/03/2024 Findings: Stable enlarged left thyroid lobe with substernal extension and nodules. There is no evidence of any significant mediastinal, hilar or axillary lymphadenopathy. Coronary mitch ry calcifications are present. There is no evidence of pleural or pericardial effusion. Stable 4 mm lingular nodule (axial image 70). Images through the upper abdomen reveal stable low-density right adrenal adenoma. 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 Impression: Stable 4 mm lingular nodule. Stable substernal extension left thyroid lobe. Reviewed, dictated and finalized at [facility]. Impression: Stable 4 mm lingular nodule. Stable substernal extension left thyroid lobe.
== END 2025-02-05 09:35 | disposition home or self-care (01) ==
PROVIDERS: PCP Student in an Organized Health Care Education/Training Program; Visit Provider Student in an Organized Health Care Education/Training Program
DX: R91.8 Other nonspecific abnormal finding of lung field (principal)
CPT/HCPCS: 71250